=== PATIENT | female | born 1990 | race Two or more races ===

== ENCOUNTER 2018-11-11 14:56 | Emergency (ER) | payer OTHER, BC ==
[~2018-11-11 14:56] MED LIST: FLUT16SP19; METH4TAB66 PO
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
[2018-11-11] MEDS ORDERED: IBUPROFEN 600 MG TAB PO ONE (15:15)
[2018-11-11] MEDS ORDERED: METHOCARBAMOL 500 MG TAB PO ONE (15:15)
[2018-11-11] MEDS ORDERED: METH-543 PO ×2 (15:52→15:59)
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
[2018-11-11 16:02] VITALS: BP 123/81
== END 2018-11-11 16:08 | disposition home or self-care (01) ==
LOC: ER 15:08
DX: M54.12 Radiculopathy, cervical region (principal); M62.838 Other muscle spasm; V49.40XA Driver injured in collision with unspecified motor vehicles in traffic accident, initial encounter
CPT/HCPCS: 72040; 99283